=== PATIENT | female | born 1940 | race Two or more races ===

== ENCOUNTER 2024-05-07 10:44 | Inpatient (IN) | payer MEDICARE, OTHER ==
[~2024-05-07] VITALS: Ht 154.9 cm; Wt 88.5 kg
[2024-05-07 11:16] LABS: Basophils # (auto) 0.1 10 ^3/uL (0-0.2); Basophils % (auto) 1.5 % (0.0-2.0); Eosinophils # (auto) 0.1 10 ^3/uL (0-0.8); Eosinophils % (auto) 1.5 % (0.0-7.0); Hematocrit 46.1 % (36.0-46.0); Hemoglobin 14.9 g/dL (12.2-16.2); Lymphocytes # (auto) 1.3 10 ^3/uL (0.4-5.4); Lymphocytes % (auto) 24.3 % (10.0-50.0); Mean Corpuscular Hemoglobin 32.3 pg (28.0-32.0); Mean Corpuscular Hgb Conc. 32.3 g/dL (32.0-36.0); Mean Corpuscular Volume 100.1 fL (80.0-100.0); Monocytes # (auto) 0.6 10 ^3/uL (0-1.3); Neutrophils # (auto) 3.5 10 ^3/uL (1.6-8.6); Neutrophils % (auto) 62.7 % (37.0-80.0); Nucleated Red Blood Cells % 0.1 %; Red Cell Distribution Width 16.1 % (11.8-14.3); White Blood Cell 5.5 10^3/uL (4.4-10.8)
[2024-05-07 11:30] LABS: INR 1.1 (0.9-1.15); Partial Thromboplastin Time 25.5 SEC (24.5-34.5); Prothrombin Time 11.6 sec (9.3-11.8)
[2024-05-07 11:31] LABS: Albumin 4.3 g/dL (3.2-4.8); Alkaline Phosphatase 77 U/L (46-116); Anion Gap 6 (5-15); Aspartate Aminotransferase 10 U/L (13-40); Bilirubin, Total 0.6 mg/dL (0.2-1.0); Blood Urea Nitrogen 23 mg/dL (9-23); Calcium 9.4 mg/dL (8.7-10.4); Carbon Dioxide 34 mmol/L (20-30); Chloride 101 mmol/L (98-107); Glucose 125 mg/dL (74-106); Potassium 3.4 mmol/L (3.5-5.1); Sodium 141 mmol/L (136-145)
[2024-05-07 11:34] VITALS: O2SAT 94
[2024-05-07 11:37] LABS: Alanine Aminotransferase < 9 U/L (7-40)
[2024-05-07] MEDS: POTASSIUM EFFERVESENT TAB 25 MEQ PO ONE (12:22)
[2024-05-07] MEDS: FUROSEMIDE 40 MG/4 ML VIAL IV ONE (12:22)
[2024-05-07] MEDS ORDERED: ACETAMINOPHEN 325 MG TAB PO PRN (16:15)
[2024-05-07] MEDS ORDERED: ONDANSETRON HCL 4 MG/2 ML VIAL IV PRN (16:15)
[2024-05-07] MEDS ORDERED: DOCUSATE SOD 100 MG CAP PO PRN (16:15)
[2024-05-07] MEDS: cefTRIAXone 1GM/50ML D5W 50 ML IV SCH (16:55)
[2024-05-07 17:46] VITALS: PULSE 65; RESP 20; O2SAT 93
[2024-05-07] MEDS: ALBUTEROL SULF 2.5 MG/0.5ML(0.5%) NEB SOLN NEB PRN (17:55)
[2024-05-07] MEDS: IPRATROPIUM BROM 0.5 MG/2.5ML INH SOL NEB PRN (17:55)
[2024-05-07 17:57] VITALS: PULSE 66; RESP 18; O2SAT 96
[2024-05-07] MEDS: AZITHROMYCIN 500MG/ 250ML 250 ML IV SCH (18:08)
[2024-05-07 18:28] VITALS: O2SAT 93
[2024-05-07 18:31] VITALS: BP 129/71; PULSE 60; RESP 20; TEMP 98; O2SAT 93
[2024-05-07 19:15] VITALS: PULSE 69; RESP 30; O2SAT 92
[2024-05-07] MEDS: SODIUM CHLOR 0.9% PF (SALINE LOCK) 10ML VIAL/SYR IV SCH (22:02)
[2024-05-08] VITALS (13 sets, daily range): BP systolic 118–144; BP diastolic 55–75; PULSE 50–71; RESP 18–20; TEMP 97.6–98.6; O2SAT 94–99
[2024-05-08] MEDS: ENOXAPARIN SOD 40 MG/0.4 ML SYRINGE SC SCH (08:48)
[2024-05-08] MEDS: FUROSEMIDE 40 MG/4 ML VIAL IV ONE (18:15)
[2024-05-08 23:45] LABS: Rapid Influenza A Negative (Negative); Rapid Influenza B Negative (Negative)
[2024-05-08 23:46] LABS: COVID19 ANTIGEN SOFIA FIA NEGATIVE (NEGATIVE)
[2024-05-09] VITALS (13 sets, daily range): BP systolic 113–150; BP diastolic 44–69; PULSE 51–76; RESP 18–22; TEMP 98–98.4; O2SAT 77–100
[2024-05-09] MEDS: POTASSIUM EFFERVESENT TAB 25 MEQ PO ONE (03:53)
[2024-05-09] MEDS: POTASSIUM EFFERVESENT TAB 25 MEQ GT ONE (04:01)
[2024-05-09 06:14] LABS: Chloride 100 mmol/L (98-107); Potassium 4.6 mmol/L (3.5-5.1); Sodium 136 mmol/L (136-145)
[2024-05-09 06:15] LABS: Anion Gap 1 (5-15); Calcium 9.1 mg/dL (8.7-10.4); Carbon Dioxide 35 mmol/L (20-30)
[2024-05-09 06:20] LABS: BUN/Creatinine Ratio 22.1 (10.0-20.0); Blood Urea Nitrogen 15 mg/dL (9-23); Glucose 89 mg/dL (74-106)
[2024-05-09 06:35] LABS: Basophils # (auto) 0 10 ^3/uL (0-0.2); Eosinophils # (auto) 0.3 10 ^3/uL (0-0.8); Monocytes # (auto) 0.5 10 ^3/uL (0-1.3); Neutrophils # (auto) 3.1 10 ^3/uL (1.6-8.6)
[2024-05-09 06:38] LABS: Basophils % (auto) 0.7 % (0.0-2.0); Eosinophils % (auto) 5.3 % (0.0-7.0); Hematocrit 43.1 % (36.0-46.0); Hemoglobin 14.4 g/dL (12.2-16.2); Lymphocytes # (auto) 1.4 10 ^3/uL (0.4-5.4); Lymphocytes % (auto) 26.5 % (10.0-50.0); Mean Corpuscular Hgb Conc. 33.4 g/dL (32.0-36.0); Mean Corpuscular Volume 101.8 fL (80.0-100.0); Monocytes % (auto) 9.4 % (0.0-12.0); Neutrophils % (auto) 58.1 % (37.0-80.0); Nucleated Red Blood Cells % 0.3 %; Red Blood Cells 4.23 10^6/uL (4.0-5.20); Red Cell Distribution Width 15.3 % (11.8-14.3); White Blood Cell 5.3 10^3/uL (4.4-10.8)
[2024-05-09] MEDS: FUROSEMIDE 40 MG/4 ML VIAL IV SCH (09:41)
[2024-05-09 19:46] LABS: Base Excess 9.1 mmol/L (-2.0-2.0)
[2024-05-10] VITALS (11 sets, daily range): BP systolic 120–151; BP diastolic 56–83; PULSE 54–66; RESP 18–20; TEMP 97.6–98.5; O2SAT 93–99
[2024-05-10 06:53] LABS: Basophils # (auto) 0 10 ^3/uL (0-0.2); Basophils % (auto) 0.6 % (0.0-2.0); Eosinophils # (auto) 0.3 10 ^3/uL (0-0.8); Hematocrit 45.1 % (36.0-46.0); Hemoglobin 14.7 g/dL (12.2-16.2); Lymphocytes # (auto) 1.5 10 ^3/uL (0.4-5.4); Lymphocytes % (auto) 29.9 % (10.0-50.0); Mean Corpuscular Hemoglobin 32.8 pg (28.0-32.0); Mean Corpuscular Hgb Conc. 32.6 g/dL (32.0-36.0); Mean Corpuscular Volume 100.9 fL (80.0-100.0); Monocytes # (auto) 0.5 10 ^3/uL (0-1.3); Monocytes % (auto) 10.3 % (0.0-12.0); Neutrophils # (auto) 2.7 10 ^3/uL (1.6-8.6); Neutrophils % (auto) 54.2 % (37.0-80.0); Nucleated Red Blood Cells % 0.7 %; Red Blood Cells 4.47 10^6/uL (4.0-5.20); Red Cell Distribution Width 15.5 % (11.8-14.3)
[2024-05-10 06:55] LABS: Anion Gap 3 (5-15); Calcium 9.5 mg/dL (8.7-10.4); Carbon Dioxide 35 mmol/L (20-30); Chloride 99 mmol/L (98-107); Potassium 4.5 mmol/L (3.5-5.1); Sodium 137 mmol/L (136-145)
[2024-05-10 07:01] LABS: BUN/Creatinine Ratio 21.7 (10.0-20.0); Blood Urea Nitrogen 15 mg/dL (9-23); Glucose 92 mg/dL (74-106)
[2024-05-10] MEDS: IOHEXOL 350 MG/ML 100ML IJ ONE (15:59)
[2024-05-10] MEDS ORDERED: AMOX500T86 PO (17:42)
[2024-05-10] MEDS ORDERED: FURO1TAB33 PO (17:45)
[2024-05-10] MEDS ORDERED: APIX5TAB PO (17:47)
[2024-05-10] MEDS: APIXABAN 5 MG TAB PO SCH (20:47)
[2024-05-11] VITALS (8 sets, daily range): BP systolic 119–145; BP diastolic 51–80; PULSE 57–78; RESP 18–20; TEMP 98–98.4; O2SAT 94–100
[2024-05-11 07:09] LABS: Calcium 9.4 mg/dL (8.7-10.4); Chloride 100 mmol/L (98-107); Potassium 4.6 mmol/L (3.5-5.1); Sodium 137 mmol/L (136-145)
[2024-05-11 07:10] LABS: Anion Gap 3 (5-15); Carbon Dioxide 34 mmol/L (20-30)
[2024-05-11 07:15] LABS: BUN/Creatinine Ratio 22.4 (10.0-20.0); Blood Urea Nitrogen 15 mg/dL (9-23); Glucose 93 mg/dL (74-106)
[2024-05-11 07:17] LABS: Basophils # (auto) 0 10 ^3/uL (0-0.2); Basophils % (auto) 0.8 % (0.0-2.0); Eosinophils # (auto) 0.2 10 ^3/uL (0-0.8); Hemoglobin 14.8 g/dL (12.2-16.2); Lymphocytes # (auto) 1.5 10 ^3/uL (0.4-5.4); Lymphocytes % (auto) 30.1 % (10.0-50.0); Mean Corpuscular Hemoglobin 33.1 pg (28.0-32.0); Mean Corpuscular Hgb Conc. 32.9 g/dL (32.0-36.0); Mean Corpuscular Volume 100.5 fL (80.0-100.0); Monocytes # (auto) 0.5 10 ^3/uL (0-1.3); Monocytes % (auto) 10.6 % (0.0-12.0); Neutrophils # (auto) 2.6 10 ^3/uL (1.6-8.6); Neutrophils % (auto) 53.5 % (37.0-80.0); Nucleated Red Blood Cells % 0.4 %; Red Blood Cells 4.48 10^6/uL (4.0-5.20); White Blood Cell 4.8 10^3/uL (4.4-10.8)
[2024-05-11] MEDS ORDERED: EMPA1TAB PO (19:02)
[2024-05-18] MEDS ORDERED: APIXABAN 5 MG TAB PO SCH (10:00)
== END 2024-05-11 19:00 | disposition home or self-care (01) | DRG 177 ==
LOC: ER 10:44 → TELE 16:14 → TELE-WESTW 23:49
PROVIDERS: ADMIT Internal Medicine Pulmonary Disease; ATTEND Internal Medicine Pulmonary Disease
DX: J15.69 Pneumonia due to other Gram-negative bacteria (principal); I50.33 Acute on chronic diastolic (congestive) heart failure; J96.01 Acute respiratory failure with hypoxia; J44.1 Chronic obstructive pulmonary disease with (acute) exacerbation; I82.412 Acute embolism and thrombosis of left femoral vein; J44.0 Chronic obstructive pulmonary disease with (acute) lower respiratory infection; J15.9 Unspecified bacterial pneumonia; J20.9 Acute bronchitis, unspecified; E87.6 Hypokalemia; Z20.822 Contact with and (suspected) exposure to COVID-19; I27.20 Pulmonary hypertension, unspecified
CPT/HCPCS: 36415; 36600; 71045; 71275; 80048; 80053; 82805; 83880; 84484; 85025; 85379; 85610; 85730; 87040; 87426; 87804; 93005; 93306; 93970; 94640; 96374; 97163; 99291; G0378